=== PATIENT | female | born 1985 ===

== ENCOUNTER 2018-11-12 13:54 | Emergency (ER) | payer OTHER ==
[2018-11-12 14:28] VITALS: BP 155/112; PULSE 72; RESP 16; TEMP 98.5; O2SAT 98
[2018-11-12] MEDS ORDERED: KETOROLAC TROMETHAMINE 30 MG/ML SOL IM ONE (15:00)
[2018-11-12] MEDS ORDERED: KETOROLAC TROMETHAMINE 30 MG/ML SOL ONE (15:00)
== END 2018-11-12 15:16 | disposition home or self-care (01) | DRG 563 ==
LOC: ED 13:54
DX: S93.401A Sprain of unspecified ligament of right ankle, initial encounter (principal); W00.0XXA Fall on same level due to ice and snow, initial encounter
CPT/HCPCS: 29515; 73610; 96372; 99282; J1885; E0114